=== PATIENT | female | born 1945 | race Two or more races ===

== ENCOUNTER 2017-11-23 09:09 | Outpatient (CLI) | payer OTHER ==
[~2017-11-23 09:09] MED LIST: CIPRO750 MG PO; CLONAZEPAM1 MG PO; DOCUSATE SODIU100 MG PO; IMODIUM A-D2 MG PO; LEVSIN/SL0.125 MG SL; METHYLPRED4 MG/DOSE- PO; NEURONTIN PO; PEPCID20 MG PO; PERCOCET 5/3251 TAB PO
== END 2017-11-23 09:15 | disposition home or self-care (01) ==
LOC: RAD 09:09
DX: M25.561 Pain in right knee (principal); M25.562 Pain in left knee; M54.5 Low back pain

== ENCOUNTER 2017-12-12 08:37 | Outpatient (CLI) | payer OTHER | END 2017-12-12 08:41 | disposition home or self-care (01) | LOC: MAMO-SONO 08:37 → MAMO 607 08:45 | DX: Z12.31 Encounter for screening mammogram for malignant neoplasm of breast (principal); Z87.898 Personal history of other specified conditions; N62 Hypertrophy of breast ==

== ENCOUNTER 2018-01-02 11:33 | Outpatient (CLI) | payer OTHER | END 2018-01-02 17:00 | disposition home or self-care (01) | LOC: TOM 11:33 | DX: J31.0 Chronic rhinitis (principal) ==

== ENCOUNTER 2018-03-01 09:34 | Outpatient (CLI) | payer OTHER | END 2018-03-01 09:36 | disposition home or self-care (01) | LOC: RAD 09:34 | DX: M51.36 Other intervertebral disc degeneration, lumbar region (principal); Z98.1 Arthrodesis status ==

== ENCOUNTER 2018-05-24 13:05 | Emergency (ER) | payer OTHER ==
[~2018-05-24] VITALS: Ht 154.9 cm; Wt 72.1 kg
[2018-05-24] MEDS ORDERED: TOPROL XL50 MG (13:47)
[2018-05-24] MEDS ORDERED: DIOVAN160 M1 (13:47)
[2018-05-24] MEDS ORDERED: MEDROLPACK PO (16:23)
[2018-05-24] MEDS ORDERED: TUSSI PRES-B L120 M1 PO (16:23)
[2018-05-24] MEDS ORDERED: LEVAQUIN500 MG PO (16:23)
== END 2018-05-24 16:27 | disposition home or self-care (01) ==
LOC: ER 13:05
DX: J06.9 Acute upper respiratory infection, unspecified (principal); J11.1 Influenza due to unidentified influenza virus with other respiratory manifestations

== ENCOUNTER 2018-10-02 08:47 | Outpatient (CLI) | payer OTHER ==
[~2018-10-02 08:47] MED LIST changes: +DIOVAN160 M1; +LEVAQUIN500 MG PO; +MEDROLPACK PO; +TOPROL XL50 MG; +TUSSI PRES-B L120 M1 PO
== END 2018-10-02 08:50 | disposition home or self-care (01) ==
LOC: RAD 08:47
DX: M16.0 Bilateral primary osteoarthritis of hip (principal)

== ENCOUNTER 2018-12-21 08:52 | Outpatient (CLI) | payer OTHER | END 2018-12-21 09:08 | disposition home or self-care (01) | LOC: LAB 08:52 | DX: I10 Essential (primary) hypertension (principal); E11.9 Type 2 diabetes mellitus without complications; E03.8 Other specified hypothyroidism; E78.2 Mixed hyperlipidemia ==

== ENCOUNTER 2019-02-26 08:35 | Outpatient (CLI) | payer OTHER | END 2019-02-26 08:48 | disposition home or self-care (01) | LOC: MAMO-SONO 08:35 | DX: Z12.31 Encounter for screening mammogram for malignant neoplasm of breast (principal); Z87.898 Personal history of other specified conditions; N60.11 Diffuse cystic mastopathy of right breast; N60.12 Diffuse cystic mastopathy of left breast ==

== ENCOUNTER → 2019-03-12 | Outpatient (CLI) | payer OTHER | END | disposition home or self-care (01) | LOC: NUCLEAR 13:43 | DX: M81.0 Age-related osteoporosis without current pathological fracture (principal) ==

== ENCOUNTER 2019-08-15 13:31 | Outpatient (CLI) | payer OTHER | END 2019-08-15 13:37 | disposition home or self-care (01) | LOC: RAD 13:31 | DX: M51.36 Other intervertebral disc degeneration, lumbar region (principal); M50.00 Cervical disc disorder with myelopathy, unspecified cervical region; Z98.1 Arthrodesis status ==

== ENCOUNTER 2019-12-04 09:12 | Outpatient (CLI) | payer OTHER | END 2019-12-04 15:00 | disposition home or self-care (01) | LOC: LAB 09:12 | DX: D68.8 Other specified coagulation defects (principal); D64.89 Other specified anemias; E03.8 Other specified hypothyroidism; R07.89 Other chest pain ==

== ENCOUNTER 2019-12-13 10:35 | Outpatient (CLI) | payer OTHER | END 2019-12-13 10:38 | disposition home or self-care (01) | LOC: EKG 10:35 | DX: I10 Essential (primary) hypertension (principal) ==

== ENCOUNTER 2019-12-13 10:45 | Inpatient (IN) | payer OTHER ==
[~2019-12-13] VITALS: Ht 152.4 cm; Wt 69.9 kg
[2019-12-18] MEDS ORDERED: SYNTHROID150 MCG PO (17:19)
[2019-12-18] MEDS ORDERED: OMEPRAZ PO (17:20)
[2019-12-18] MEDS ORDERED: EVISTA60 MG PO (17:20)
[2019-12-18] MEDS ORDERED: COZAAR50 MG PO (17:21)
[2019-12-18] MEDS ORDERED: ZOLO PO (17:21)
[2019-12-19] MEDS ORDERED: CLONAZEPAM2 MG PO (09:17)
[2019-12-19] MEDS ORDERED: ZOLPIDEM TARTRA10 MG PO (09:17)
[2019-12-19] MEDS ORDERED: ARICEPT10 MG PO (09:17)
[2019-12-19] MEDS ORDERED: GABAPENTIN800 M1 PO (09:17)
[2019-12-19] MEDS ORDERED: GABAPENTIN100 M2 (09:18)
[2019-12-19] MEDS ORDERED: IRBESARTAN150 MG PO (09:18)
[2019-12-19] MEDS ORDERED: HYDROCHLOROTH12.5 MG (09:19)
[2019-12-19] MEDS ORDERED: OMEPRAZOLE40 MG PO (09:21)
[2019-12-19] MEDS ORDERED: ZOLOFT50 MG (09:22)
[2019-12-19] MEDS ORDERED: COLACE100 MG PO (17:05)
[2019-12-19] MEDS ORDERED: DIAZEPAM10 MG PO (17:05)
[2019-12-19] MEDS ORDERED: PERCOCET 5-3251 EACH PO (17:05)
== END 2019-12-20 10:42 | disposition home or self-care (01) | DRG 454 ==
LOC: O/R 12-19 06:00 → SURH 12-19 10:45 → O/R 12-19 13:00 → SURG 12-19 19:49
PROVIDERS: ADMIT Orthopaedic Surgery Orthopaedic Surgery of the Spine
PROC: 0RG2071 Fusion of 2 or more Cervical Vertebral Joints with Autologous Tissue Substitute, Posterior Approach, Posterior Column, Open Approach (ICD-10-PCS; 2019-12-19)
PROC: 0RT30ZZ Resection of Cervical Vertebral Disc, Open Approach (ICD-10-PCS; 2019-12-19)
PROC: 07DS3ZZ Extraction of Vertebral Bone Marrow, Percutaneous Approach (ICD-10-PCS; 2019-12-19)
PROC: 0RG20A0 Fusion of 2 or more Cervical Vertebral Joints with Interbody Fusion Device, Anterior Approach, Anterior Column, Open Approach (ICD-10-PCS; principal; 2019-12-19 13:00)
DX: M50.021 Cervical disc disorder at C4-C5 level with myelopathy (principal); M47.12 Other spondylosis with myelopathy, cervical region; I10 Essential (primary) hypertension; E03.8 Other specified hypothyroidism

== ENCOUNTER 2019-12-13 11:09 | Outpatient (CLI) | payer OTHER | END 2019-12-13 11:20 | disposition home or self-care (01) | LOC: RAD 11:09 → MAMO-SONO 11:45 | DX: M12.861 Other specific arthropathies, not elsewhere classified, right knee (principal); M12.862 Other specific arthropathies, not elsewhere classified, left knee ==

== ENCOUNTER 2020-01-19 08:26 | Outpatient (CLI) | payer OTHER ==
[~2020-01-19 08:26] MED LIST changes: +ARICEPT10 MG PO; +CLONAZEPAM2 MG PO; +COLACE100 MG PO; +COZAAR50 MG PO; +DIAZEPAM10 MG PO; +EVISTA60 MG PO; +GABAPENTIN100 M2; +GABAPENTIN800 M1 PO; +HYDROCHLOROTH12.5 MG; +IRBESARTAN150 MG PO; +OMEPRAZ PO; +OMEPRAZOLE40 MG PO; +PERCOCET 5-3251 EACH PO; +SYNTHROID150 MCG PO; +ZOLO PO; +ZOLOFT50 MG; +ZOLPIDEM TARTRA10 MG PO
== END 2020-01-19 08:30 | disposition home or self-care (01) ==
LOC: RAD 08:26
DX: Z98.1 Arthrodesis status (principal)

== ENCOUNTER 2020-05-07 10:37 | Outpatient (CLI) | payer OTHER | END 2020-05-07 10:39 | disposition home or self-care (01) | LOC: NUCLEAR 10:37 | PROVIDERS: ATTEND Internal Medicine Rheumatology | DX: M81.0 Age-related osteoporosis without current pathological fracture (principal) ==

== ENCOUNTER → 2020-07-16 15:16 | Outpatient (CLI) | payer OTHER | END | disposition home or self-care (01) | LOC: LAB 15:16 | PROVIDERS: ATTEND Internal Medicine Cardiovascular Disease | DX: D64.0 Hereditary sideroblastic anemia (principal); J11.1 Influenza due to unidentified influenza virus with other respiratory manifestations; R05 Cough; R06.2 Wheezing; R50.9 Fever, unspecified ==

== ENCOUNTER 2020-08-26 08:32 | Outpatient (CLI) | payer OTHER | END 2020-08-26 08:45 | disposition home or self-care (01) | LOC: TOM 08:32 | PROVIDERS: ATTEND Internal Medicine Cardiovascular Disease | DX: R51 Headache (principal) ==

== ENCOUNTER 2021-01-31 10:08 | Outpatient (CLI) | payer OTHER | END 2021-01-31 10:14 | disposition home or self-care (01) | LOC: RAD 10:08 | PROVIDERS: ATTEND Pain Medicine Interventional Pain Medicine | DX: M25.761 Osteophyte, right knee (principal) ==

== ENCOUNTER 2021-03-10 08:00 | Inpatient (IN) | payer OTHER ==
[~2021-03-10] VITALS: Ht 152.4 cm; Wt 69.9 kg
[2021-03-19] MEDS ORDERED: PERCOCET 5-3251 EACH PO (15:08)
[2021-03-19] MEDS ORDERED: ELIQUIS2.5 MG PO (15:08)
[2021-03-19] MEDS ORDERED: DUI500 PO (15:08)
[2021-03-20] MEDS ORDERED: DUI500 PO (08:08)
[2021-03-20] MEDS ORDERED: ELIQUIS2.5 MG PO (08:08)
[2021-03-20] MEDS ORDERED: PERCOCET 5-3251 EACH PO (08:08)
== END 2021-03-20 16:51 | DRG 470 ==
LOC: SURH 03-17 05:35 → O/R 03-17 05:35 → SURH 03-17 15:54
PROVIDERS: ADMIT Orthopaedic Surgery; ATTEND Orthopaedic Surgery
PROC: 0SRC0J9 Replacement of Right Knee Joint with Synthetic Substitute, Cemented, Open Approach (ICD-10-PCS; principal; 2021-03-17 10:15)
DX: M17.11 Unilateral primary osteoarthritis, right knee (principal); D62 Acute posthemorrhagic anemia; I10 Essential (primary) hypertension

== ENCOUNTER → 2021-08-21 09:32 | Outpatient (CLI) | payer OTHER ==
[~2021-08-21 09:32] MED LIST changes: +AMBIEN10 MG PO; +DUI500 PO; +ELIQUIS2.5 MG PO; +FLONASE16 GM; +LEVOFLOXACIN750 MG PO; +OMEPRAZOLE PO; +ONDANSETRON HCL8 MG; +TAMSULOSIN HCL0.4 MG; +TIROSINT100 MCG PO
== END | disposition home or self-care (01) ==
LOC: LAB 09:32 → RAD 09:32
PROVIDERS: ATTEND Internal Medicine Cardiovascular Disease
DX: D68.8 Other specified coagulation defects (principal); I10 Essential (primary) hypertension; E11.9 Type 2 diabetes mellitus without complications; E03.8 Other specified hypothyroidism; E78.2 Mixed hyperlipidemia; J44.9 Chronic obstructive pulmonary disease, unspecified

== ENCOUNTER 2021-08-27 07:00 | Inpatient (IN) | payer OTHER ==
[~2021-08-27] VITALS: Ht 152.4 cm; Wt 71.2 kg
[~2021-08-27 07:00] MED LIST changes: -AMBIEN10 MG PO; -FLONASE16 GM; -LEVOFLOXACIN750 MG PO; -OMEPRAZOLE PO; -ONDANSETRON HCL8 MG; -TAMSULOSIN HCL0.4 MG; -TIROSINT100 MCG PO
[2021-08-27] MEDS ORDERED: OMEPRAZOLE PO (09:10)
[2021-08-27] MEDS ORDERED: TIROSINT100 MCG PO (09:10)
[2021-08-27] MEDS ORDERED: EVISTA60 MG PO (09:11)
[2021-08-27] MEDS ORDERED: AMBIEN10 MG PO (09:11)
[2021-09-02] MEDS ORDERED: ONDANSETRON HCL8 MG (08:13)
[2021-09-02] MEDS ORDERED: TAMSULOSIN HCL0.4 MG (08:13)
[2021-09-02] MEDS ORDERED: FLONASE16 GM (08:14)
[2021-09-03] MEDS ORDERED: LEVOFLOXACIN750 MG PO (17:06)
[2021-09-03] MEDS ORDERED: PERCOCET 5-3251 EACH PO (17:06)
[2021-09-03] MEDS ORDERED: ELIQUIS2.5 MG PO (17:06)
== END 2021-09-03 20:48 | DRG 470 ==
LOC: SURG 09-01 04:30 → O/R 09-01 04:30 → SURH 09-01 07:00 → SURG 09-01 10:14
PROVIDERS: ADMIT Orthopaedic Surgery; ATTEND Orthopaedic Surgery
PROC: 0SND0ZZ Release Left Knee Joint, Open Approach (ICD-10-PCS; 2021-09-01)
PROC: 0QUF0KZ Supplement Left Patella with Nonautologous Tissue Substitute, Open Approach (ICD-10-PCS; 2021-09-01)
PROC: 3E0F7SF Introduction of Other Gas into Respiratory Tract, Via Natural or Artificial Opening (ICD-10-PCS; 2021-09-01)
PROC: 0SRD0J9 Replacement of Left Knee Joint with Synthetic Substitute, Cemented, Open Approach (ICD-10-PCS; principal; 2021-09-01 07:00)
DX: M17.12 Unilateral primary osteoarthritis, left knee (principal); M81.0 Age-related osteoporosis without current pathological fracture; M22.12 Recurrent subluxation of patella, left knee; Z20.822 Contact with and (suspected) exposure to COVID-19

== ENCOUNTER 2022-06-16 08:58 | Outpatient (CLI) | payer OTHER ==
[~2022-06-16 08:58] MED LIST changes: +AMBIEN10 MG PO; +FLONASE16 GM; +LEVOFLOXACIN750 MG PO; +OMEPRAZOLE PO; +ONDANSETRON HCL8 MG; +TAMSULOSIN HCL0.4 MG; +TIROSINT100 MCG PO
== END 2022-06-16 09:10 | disposition home or self-care (01) ==
LOC: MAMO-SONO 08:58
PROVIDERS: ATTEND Internal Medicine Cardiovascular Disease
DX: R10.9 Unspecified abdominal pain (principal); N39.0 Urinary tract infection, site not specified; N63.11 Unspecified lump in the right breast, upper outer quadrant

== ENCOUNTER 2022-07-21 09:17 | Outpatient (CLI) | payer OTHER | END 2022-07-21 09:18 | disposition home or self-care (01) | LOC: NUCLEAR 09:17 | PROVIDERS: ATTEND Obstetrics & Gynecology Gynecology | DX: M81.0 Age-related osteoporosis without current pathological fracture (principal); Z88.2 Allergy status to sulfonamides; Z88.8 Allergy status to other drugs, medicaments and biological substances ==

== ENCOUNTER 2024-06-21 10:43 | Inpatient (IN) | payer OTHER ==
[~2024-06-21] VITALS: Ht 152.4 cm; Wt 52.2 kg
[2024-06-21] MEDS ORDERED: PROTONIX40 M1 PO (10:52)
[2024-06-21] MEDS ORDERED: LASIX20 MG PO (10:53)
[2024-06-21] MEDS ORDERED: ARICEPT5 MG PO (10:53)
[2024-06-21] MEDS ORDERED: FOLIC ACID20 MG PO (10:53)
[2024-06-21] MEDS ORDERED: ATORVASTATIN CA20 MG PO (10:53)
[2024-06-21] MEDS ORDERED: TEMAZEPAM30 MG PO (10:53)
[2024-06-21] MEDS ORDERED: SYNTHROID75 MCG PO (10:54)
[2024-06-21] MEDS ORDERED: COZAAR50 MG PO (10:54)
--- NOTE | 2024-06-21 10:54 | NUR ---
SE RECIBE PACIENTE EN AMBULANCIA ALERTA Y ORIENTADA X3, REFIERE HABERSE REALIZADO CBC UMA Y TENER LA HEMOGLOBINA EN 8.7. SE MONITOREAN VS Y SE UBICA. PACIENTE DE DR. PRICE JACKSON
[2024-06-21] MEDS ORDERED: 0.9 % SODIUM CHLORIDE 1,000 ML IV SCH (11:15)
[2024-06-21 11:56] LABS: MEAN CELL VOLUME 90.1 fL (80.00-100.00); MEAN CORPUSCULAR HGB CONC 33.8 g/dl (32.0-36.0); PLATELET COUNT 162 K/uL (150-450); RED BLOOD COUNT 2.49 M/uL (4.00-6.00)
[2024-06-21 12:06] LABS: HEMATOCRIT 22.4 % (36.0-45.00); MEAN CORPUSCULAR HEMOGLOBIN 30.5 pg (27.00-32.0)
[2024-06-21 12:07] LABS: HEMOGLOBIN 7.6 g/dL (12.0-15.00); RED CELL DISTRIBUTION WIDTH 17.7 % (11.5-14.5)
[2024-06-21 12:17] LABS: INR 1.03; PARTIAL THROMBOPLASTIN TIME 26.5 SECONDS (22.0-34.0); PROTHROMBIN TIME 10.8 SECONDS (9.0-11.5)
[2024-06-21 12:20] LABS: CALCIUM 8.7 mg/dL (8.5-10.1); CREATININE SERUM 1.05 mg/dL (0.55-1.02); GFR 50.43; POTASSIUM 3.97 mEq/L (3.5-5.1)
--- NOTE | 2024-06-21 12:24 | NUR ---
FEMINA EVALUADA POR DR ELLIS. SE ORIENTA A PTE SOBRE TX MEDICO. SE COLECTAN MUESTRAS DE LABORATORIO BAJO MEDIDAS ASEPTICAS Y SE COLOCA IVF'S NAKUL ORDEN MEDICA.
[2024-06-21 12:34] LABS: URINE APPEARANCE Clear; URINE BILIRRUBIN Negative (NEGATIVE); URINE BLOOD Negative; URINE COLOR Yellow; URINE GLUCOSE Negative (NEGATIVE); URINE KETONE Negative (NEGATIVE); URINE LEUKOCYTE Negative; URINE NITRATE Negative; URINE PROTEIN Negative (NEGATIVE); URINE UROBILINOGEN 0.2 E.U./dl
[2024-06-21 12:38] LABS: URINE BACTERIA 99.5 uL (0.0-1933); URINE EPITHELIAL CELLS 5.7 uL (0.0-38.8); URINE WBC 3.5 uL (0.0-23.2)
[2024-06-21 12:42] LABS: URINE CAST 0.45 uL (0.0-1.40); URINE RBC 1.9 uL (0.0-20.8)
[2024-06-21] MEDS ORDERED: BARIUM SULFATE 450 ML ORAL.SUSP PO ONE (13:47)
--- NOTE | 2024-06-21 14:02 | NUR ---
SE ORIENTA A PTE SOBRE ORDEN DE TRANSFUSION PARA 2 UNIDADES DE PRBC. HIJA DE PACIENTE FIRMA CONSENTIMIENTO DE TRANSFUSION. SE COLECTAN TUBOS PILOTOS Y SE COMPLETA REQUISICION PARA 2 UNIDADES DE PRBC LA CUAL ES LLEVADA A LABORATORIO QUIEN INDICA QUE PACIENTE POSEE RECORD VIGENTE EN [facility].
[2024-06-21] MEDS ORDERED: BACITRACIN-NEOMYCIN-POLYMYXIN 0.9 GM PACKET TOP ONE (15:51)
[2024-06-21] MEDS ORDERED: FUROsemide 20 MG/2 ML VIAL IV SCH (17:45)
[2024-06-21] MEDS ORDERED: PANTOPRAZOLE SODIUM 40 MG/VIAL VIAL IV ONE (17:45)
[2024-06-21] MEDS ORDERED: PANTOPRAZOLE SODIUM 80 MG in 0.9 % SODIUM CHLORIDE 100 ML IV SCH (17:45)
--- NOTE | 2024-06-21 18:10 | NUR ---
SE CONTACTA A [facility] PARA CAMBIO EN REQUISICION A DOS UNIDADES DE PRBC'S FRACCIONADAS A . SE ENTREGA DOCUMENTACION A PERSONAL DE [facility] EN LABORATORIO [facility].
[2024-06-21] MEDS ORDERED: ONDANSETRON HCL 2 MG/ML VIAL ONE (18:23)
[2024-06-21] MEDS ORDERED: ONDANSETRON HCL 2 MG/ML VIAL IV ONE (18:30)
[2024-06-21] MEDS ORDERED: SODIUM CHLORIDE 0.45 % 1,000 ML IV SCH (19:00)
[2024-06-21] MEDS ORDERED: ONDANSETRON HCL 4 MG in 0.9 % SODIUM CHLORIDE 50 ML IV PRN (19:00)
[2024-06-21] MEDS ORDERED: ACETAMINOPHEN 500 MG GEL..CAP PO PRN (19:00)
[2024-06-21] MEDS ORDERED: DONEPEZIL HCL 10 MG TABLET PO SCH (19:01)
[2024-06-21] MEDS ORDERED: ATORVASTATIN CALCIUM 20 MG TABLET PO SCH (19:01)
[2024-06-21] MEDS ORDERED: CEFTRIAXONE SODIUM 2,000 MG in 0.9 % SODIUM CHLORIDE 100 ML IV SCH (19:06)
[2024-06-21] MEDS ORDERED: CEFTRIAXONE SODIUM 2,000 MG VIAL ONE (19:20)
[2024-06-21] MEDS ORDERED: TEMAZEPAM 15 MG CAPSULE PO SCH (21:00)
[2024-06-22] MEDS ORDERED: LEVOTHYROXINE SODIUM 125 MCG TABLET PO SCH (06:00)
[2024-06-22] MEDS ORDERED: IRON FUM,PS/FOLIC/BCOMP,C NO.9 1 CAP CAPSULE PO SCH (09:00)
[2024-06-22] MEDS ORDERED: LOSARTAN POTASSIUM 50 MG TABLET PO SCH (09:00)
[2024-06-22 12:47] LABS: ob POSITIVE (NEGATIVE)
[2024-06-22 12:49] LABS: FECAL LEUKOCYTES NEGATIVE (NEGATIVE)
[2024-06-22] MEDS ORDERED: FOLIC ACID 1 MG TABLET PO SCH (17:00)
[2024-06-23] MEDS ORDERED: Cyanocobalamin/Mecobalamin 1 TAB.SL SL SCH (09:00)
[2024-06-23 09:09] LABS: FREE TRIODOTIRONINE 1.28 pg/ml (2.18-3.98)
[2024-06-23 12:30] LABS: HEMATOCRIT 41.1 % (36.0-45.00); HEMOGLOBIN 13.7 g/dL (12.0-15.00); MEAN CELL VOLUME 90.6 fL (80.00-100.00); MEAN CORPUSCULAR HEMOGLOBIN 30.2 pg (27.00-32.0); MEAN CORPUSCULAR HGB CONC 33.3 g/dl (32.0-36.0); PLATELET COUNT 185 K/uL (150-450); RED BLOOD COUNT 4.54 M/uL (4.00-6.00); RED CELL DISTRIBUTION WIDTH 16.8 % (11.5-14.5)
[2024-06-25 08:51] LABS: HEMOGLOBIN 11.4 g/dL (12.0-15.00); MEAN CORPUSCULAR HEMOGLOBIN 30.9 pg (27.00-32.0); MEAN CORPUSCULAR HGB CONC 34.4 g/dl (32.0-36.0); PLATELET COUNT 199 K/uL (150-450); RED BLOOD COUNT 3.67 M/uL (4.00-6.00); RED CELL DISTRIBUTION WIDTH 16.7 % (11.5-14.5)
[2024-06-25] MEDS ORDERED: hydrALAZINE HCL 20 MG VIAL IV PRN (15:15)
[2024-06-26] MEDS ORDERED: LEVOTHYROXINE SODIUM 150 MCG TABLET PO SCH (06:00)
[2024-06-27 15:27] LABS: HEMOGLOBIN 10.5 g/dL (12.0-15.00); MEAN CELL VOLUME 93.1 fL (80.00-100.00); MEAN CORPUSCULAR HEMOGLOBIN 32.4 pg (27.00-32.0); MEAN CORPUSCULAR HGB CONC 34.8 g/dl (32.0-36.0); PLATELET COUNT 172 K/uL (150-450); RED BLOOD COUNT 3.22 M/uL (4.00-6.00); RED CELL DISTRIBUTION WIDTH 17.8 % (11.5-14.5)
[2024-06-27 15:56] LABS: CALCIUM 8.8 mg/dL (8.5-10.1); CREATININE SERUM 0.94 mg/dL (0.55-1.02); GFR 57.29; POTASSIUM 3.72 mEq/L (3.5-5.1)
[2024-06-28 08:36] LABS: HEMOGLOBIN 9.7 g/dL (12.0-15.00); MEAN CELL VOLUME 93.3 fL (80.00-100.00); MEAN CORPUSCULAR HEMOGLOBIN 32.1 pg (27.00-32.0); MEAN CORPUSCULAR HGB CONC 34.4 g/dl (32.0-36.0); PLATELET COUNT 188 K/uL (150-450); RED BLOOD COUNT 3.01 M/uL (4.00-6.00); RED CELL DISTRIBUTION WIDTH 18.1 % (11.5-14.5)
[2024-06-29 06:36] LABS: MEAN CELL VOLUME 92.4 fL (80.00-100.00); MEAN CORPUSCULAR HGB CONC 35.3 g/dl (32.0-36.0); PLATELET COUNT 173 K/uL (150-450); RED BLOOD COUNT 2.48 M/uL (4.00-6.00); RED CELL DISTRIBUTION WIDTH 18.4 % (11.5-14.5)
[2024-06-29 07:15] LABS: HEMATOCRIT 22.9 % (36.0-45.00); HEMOGLOBIN 8.1 g/dL (12.0-15.00); MEAN CORPUSCULAR HEMOGLOBIN 32.6 pg (27.00-32.0)
[2024-06-29] MEDS ORDERED: LOSARTAN POTASSIUM 100 MG TABLET PO SCH (09:00)
[2024-06-29] MEDS ORDERED: MIDAZOLAM HCL 2 MG/2 ML VIAL IV STA (11:35)
[2024-06-29] MEDS ORDERED: FentaNYL CITRATE/PF 50MCG/ML 2ML VIAL IJ STA (11:36)
[2024-06-29] MEDS ORDERED: TEMAZEPAM 15 MG CAPSULE PO SCH (21:15)
[2024-06-30] MEDS ORDERED: PANTOPRAZOLE SODIUM 40 MG TABLET.DR PO SCH (12:00)
[2024-06-30] MEDS ORDERED: SUCRALFATE 1 G TABLET PO SCH (17:00)
[2024-07-01 11:07] LABS: HEMATOCRIT 33.6 % (36.0-45.00); HEMOGLOBIN 11.4 g/dL (12.0-15.00); MEAN CELL VOLUME 89.8 fL (80.00-100.00); MEAN CORPUSCULAR HEMOGLOBIN 30.5 pg (27.00-32.0); MEAN CORPUSCULAR HGB CONC 33.9 g/dl (32.0-36.0); PLATELET COUNT 186 K/uL (150-450); RED BLOOD COUNT 3.74 M/uL (4.00-6.00)
[2024-07-01] MEDS ORDERED: PROTONIX40 MG PO (15:34)
[2024-07-01] MEDS ORDERED: CARAFATE1 GM PO (15:34)
== END 2024-07-01 16:24 | disposition home or self-care (01) | DRG 812 ==
LOC: ER 10:43 → MEDJ 19:31 → MEDI 06-27 13:05
PROVIDERS: Emergency Medicine; General Practice; Internal Medicine; ADMIT Internal Medicine; ATTEND Internal Medicine
PROC: BW21YZZ Computerized Tomography (CT Scan) of Abdomen and Pelvis using Other Contrast (ICD-10-PCS; 2024-06-21)
PROC: CD271ZZ Tomographic (Tomo) Nuclear Medicine Imaging of Gastrointestinal Tract using Technetium 99m (Tc-99m) (ICD-10-PCS; 2024-06-22)
PROC: 02HV33Z Insertion of Infusion Device into Superior Vena Cava, Percutaneous Approach (ICD-10-PCS; 2024-06-22)
PROC: 30233N1 Transfusion of Nonautologous Red Blood Cells into Peripheral Vein, Percutaneous Approach (ICD-10-PCS; 2024-06-22)
PROC: 0DB78ZX Excision of Stomach, Pylorus, Via Natural or Artificial Opening Endoscopic, Diagnostic (ICD-10-PCS; principal; 2024-06-29)
DX: D64.9 Anemia, unspecified (principal); K92.1 Melena; K57.30 Diverticulosis of large intestine without perforation or abscess without bleeding; E03.9 Hypothyroidism, unspecified; I10 Essential (primary) hypertension; G30.9 Alzheimer's disease, unspecified; F02.80 Dementia in other diseases classified elsewhere, unspecified severity, without behavioral disturbance, psychotic disturbance, mood disturbance, and anxiety; E78.5 Hyperlipidemia, unspecified